=== PATIENT | male | born 1950 | race Caucasian/White ===

== ENCOUNTER 2019-04-19 22:28 | Emergency (ER) | payer MEDICARE ==
[2019-04-19 22:33] VITALS: BP 138/80
== END 2019-04-20 00:39 | disposition left against medical advice (07) ==
LOC: ED 22:28
DX: T14.8XXA Other injury of unspecified body region, initial encounter (principal); W57.XXXA Bitten or stung by nonvenomous insect and other nonvenomous arthropods, initial encounter; Y92.9 Unspecified place or not applicable; Z53.21 Procedure and treatment not carried out due to patient leaving prior to being seen by health care provider